=== PATIENT | male | born 1955 | race African-American/Black ===

== ENCOUNTER 2016-10-27 09:24 | Inpatient (IN) | payer MEDICAID ==
[~2016-10-27] VITALS: Ht 165.1 cm; Wt 66.2 kg
[~2016-10-27 09:24] MED LIST: BENZ1TAB7 PO; CLON1TAB PO; DIVA-18 PO; ESCI10TA PO; HALO5TAB PO; MAG-55 PO; METO25TA6 PO; PRAV40TA PO; QUET200T PO; QUET400T PO; SULI200T4 PO; SYN150 PO; TRAZ-132 PO; ZIPR60CA4 PO
[2016-10-27] MEDS ORDERED: SODIUM CHLORIDE 0.9% 1,000 ML IV ONE (09:38)
[2016-10-27 10:14] LABS: BASOPHILS % 0.5 % (0.0-2.0); HEMATOCRIT. 35.8 % (42.0-52.0); HEMOGLOBIN. 11.7 g/dL (14.0-18.0); LYMPHOCYTES % 12.6 % (20.0-50.0); MEAN CORPUSCULAR HEMOGLOBIN 28.1 pg (28.0-32.0); MEAN CORPUSCULAR VOLUME 85.8 fL (80.0-94.0); MEAN PLATELET VOLUME 9.7 fl (7.4-10.4); MONOCYTES % 6.7 % (2.0-8.0); NEUTROPHILS % 79.2 % (40.0-76.0); PLATELET 136 x1000/uL (130-400); RED BLOOD CELL COUNT 4.18 mill/uL (4.7-6.1); RED CELL DISTRIBUTION WIDTH 15.7 % (11.6-14.6)
[2016-10-27 10:17] LABS: INR 1.1; PARTIAL THROMBOPLASTIN TIME 22.5 sec (24.0-34.0); PROTHROMBIN TIME 11.2 sec
[2016-10-27 10:25] LABS: CARBON DIOXIDE 26 mEq/L (21-32); CHLORIDE 112 mEq/L (98-107); TROPONIN I < 0.02 ng/mL (0.00-0.04)
[2016-10-27] MEDS ORDERED: SODIUM CHLORIDE 0.45% 1,000 ML IV SCH (11:50)
[2016-10-27] MEDS ORDERED: IPRATROPIUM/ALBUTEROL 0.5-3(2.5)MG/3ML NEB INH PRN (12:00)
[2016-10-27] MEDS ORDERED: ONDANSETRON HCL 4MG/2ML VIAL IV PRN (12:00)
[2016-10-27] MEDS ORDERED: ACETAMINOPHEN 325MG TABLET PO PRN (12:00)
[2016-10-27] MEDS ORDERED: MAGNESIUM/ALUMINUM HYDROXIDE/SIMETHICONE 30ML UDC PO PRN (12:00)
[2016-10-27] MEDS ORDERED: DOCUSATE SODIUM 100MG CAPSULE PO PRN (12:00)
[2016-10-27] MEDS ORDERED: CLONIDINE 0.1MG TABLET PO PRN (12:00)
[2016-10-27] MEDS ORDERED: METOPROLOL TARTRATE 25MG TABLET PO NR (14:00)
[2016-10-27 14:30] VITALS: BP 132/84
[2016-10-27] MEDS ORDERED: AMLODIPINE 5MG TABLET PO SCH ×2 (15:00→21:00)
[2016-10-27 16:00] VITALS: BP 146/76
[2016-10-27] MEDS: ENOXAPARIN 40MG/0.4ML SYR SUBCUT SCH (16:53)
[2016-10-27] MEDS: LOSARTAN POTASSIUM 25 MG TABLET PO SCH (16:54)
[2016-10-27] MEDS: AMLODIPINE 10MG TABLET PO SCH (16:54)
[2016-10-27 17:39] LABS: CARBON DIOXIDE 30 mEq/L (21-32); CHLORIDE 113 mEq/L (98-107); CREATINE KINASE 362 IU/L (39-308); CREATINE KINASE MB FRACTION 1.9 ng/mL (0.5-3.6); TROPONIN I < 0.02 ng/mL (0.00-0.04)
[2016-10-27] MEDS ORDERED: DEXTROSE 50% WATER 50ML SYRINGE IV PRN (17:45)
[2016-10-27] MEDS ORDERED: NAPR-681 PO (18:15)
[2016-10-27] MEDS ORDERED: ACET160S PO (18:15)
[2016-10-27] MEDS ORDERED: ACETAMINOPHEN 160 MG/5 ML UD CUP PO SCH (18:30)
[2016-10-27] MEDS ORDERED: NAPROXEN 500MG TABLET PO PRN (18:30)
[2016-10-27] MEDS: DEXTROSE 5% WATER 1,000 ML IV SCH (18:47)
[2016-10-27 19:50] LABS: CLARITY URINE CLEAR (CLEAR); COLOR URINE YELLOW (YELLOW); GLUCOSE URINE NEGATIVE (NEGATIVE); KETONES URINE NEGATIVE (NEGATIVE); LEUKOCYTE ESTERASE URINE TRACE (NEGATIVE); NITRITE URINE NEGATIVE (NEGATIVE); OCCULT BLOOD URINE NEGATIVE (NEGATIVE); PH URINE 7.5 (4.5-8.0); PROTEIN URINE NEGATIVE (NEGATIVE); SPECIFIC GRAVITY URINE 1.012 (1.005-1.030)
[2016-10-27 20:00] VITALS: BP 97/63
[2016-10-27 20:22] LABS: *AMPHETAMINES SCREEN URINE NEGATIVE (NEGATIVE); *BARBITURATES SCREEN URINE NEGATIVE (NEGATIVE); *BENZODIAZEPINES SCREEN URINE NEGATIVE (NEGATIVE); *COCAINE SCREEN URINE NEGATIVE (NEGATIVE); CANNABINOID URINE SCREEN NEGATIVE (NEGATIVE); METHADONE URINE SCREEN NEGATIVE (NEGATIVE); OPIATES URINE SCREEN NEGATIVE (NEGATIVE); PHENCYCLIDINE URINE SCREEN NEGATIVE (NEGATIVE)
[2016-10-27] MEDS: TRAZODONE HCL 100MG TABLET PO SCH (20:33)
[2016-10-27] MEDS: BLOOD SUGAR DIAGNOSTIC STRIP TEST SCH (20:33)
[2016-10-27] MEDS: ATORVASTATIN CALCIUM 10MG TABLET PO SCH (20:33)
[2016-10-27] MEDS: QUETIAPINE FUMARATE 100MG TABLET PO SCH (20:33)
[2016-10-27] MEDS: INSULIN LISPRO 100 UNITS/ML SUBCUT SCH (20:42)
[2016-10-27 23:37] VITALS: BP 97/61
[2016-10-28] VITALS (8 sets, daily range): BP systolic 85–147; BP diastolic 59–85
[2016-10-28 00:04] LABS: CREATINE KINASE 328 IU/L (39-308); CREATINE KINASE MB FRACTION 1.7 ng/mL (0.5-3.6); TROPONIN I < 0.02 ng/mL (0.00-0.04)
[2016-10-28 05:50] LABS: BASOPHILS % 0.7 % (0.0-2.0); EOSINOPHILS % 3.9 % (0.0-5.0); HEMATOCRIT. 31.3 % (42.0-52.0); HEMOGLOBIN. 10.2 g/dL (14.0-18.0); LYMPHOCYTES % 29.8 % (20.0-50.0); MEAN CORPUSCULAR HEMOGLOBIN 28.1 pg (28.0-32.0); MEAN CORPUSCULAR VOLUME 86.1 fL (80.0-94.0); MEAN PLATELET VOLUME 9.8 fl (7.4-10.4); MONOCYTES % 8.5 % (2.0-8.0); NEUTROPHILS % 57.1 % (40.0-76.0); PLATELET 116 x1000/uL (130-400); RED BLOOD CELL COUNT 3.64 mill/uL (4.7-6.1); RED CELL DISTRIBUTION WIDTH 15.3 % (11.6-14.6)
[2016-10-28] MEDS: BLOOD SUGAR DIAGNOSTIC STRIP TEST SCH ×4 (07:01→20:42)
[2016-10-28] MEDS: INSULIN LISPRO 100 UNITS/ML SUBCUT SCH ×4 (07:05→20:42)
[2016-10-28] MEDS ORDERED: METOPROLOL TARTRATE 25MG TABLET PO SCH (09:00)
[2016-10-28] MEDS: AMLODIPINE 10MG TABLET PO SCH (09:00)
[2016-10-28] MEDS ORDERED: SODIUM CHLORIDE 0.45% 250 ML IV NR (09:00)
[2016-10-28] MEDS: LOSARTAN POTASSIUM 25 MG TABLET PO SCH (09:00)
[2016-10-28] MEDS: CITALOPRAM HYDROBROMIDE 20MG TABLET PO SCH (10:25)
[2016-10-28] MEDS: LEVOTHYROXINE SODIUM 150MCG TABLET PO SCH (10:25)
[2016-10-28] MEDS: CLONAZEPAM 1MG TABLET PO SCH ×2 (10:25→16:54)
[2016-10-28] MEDS: QUETIAPINE FUMARATE 100MG TABLET PO SCH ×3 (10:25→21:00)
[2016-10-28] MEDS: LORAZEPAM 0.5MG TABLET PO PRN (10:26)
[2016-10-28] MEDS: BENZTROPINE MESYLATE 1MG TABLET PO SCH ×2 (10:26→16:53)
[2016-10-28] MEDS: DIVALPROEX SODIUM 500MG DR TABLET PO SCH (10:28)
[2016-10-28] MEDS: DEXTROSE 5% WATER 1,000 ML IV SCH (11:35)
[2016-10-28] MEDS: ENOXAPARIN 40MG/0.4ML SYR SUBCUT SCH (16:54)
[2016-10-28] MEDS: TRAZODONE HCL 100MG TABLET PO SCH (21:00)
[2016-10-29] VITALS (8 sets, daily range): BP systolic 90–133; BP diastolic 56–91
[2016-10-29] MEDS: ATORVASTATIN CALCIUM 10MG TABLET PO SCH ×2 (00:05→21:35)
[2016-10-29] MEDS: DEXTROSE 5% WATER 1,000 ML IV SCH ×2 (04:48→17:40)
[2016-10-29] MEDS: INSULIN LISPRO 100 UNITS/ML SUBCUT SCH ×4 (06:24→21:00)
[2016-10-29] MEDS: BLOOD SUGAR DIAGNOSTIC STRIP TEST SCH ×4 (06:24→21:36)
[2016-10-29] MEDS: LEVOTHYROXINE SODIUM 150MCG TABLET PO SCH (06:28)
[2016-10-29] MEDS: CITALOPRAM HYDROBROMIDE 20MG TABLET PO SCH (09:09)
[2016-10-29] MEDS: BENZTROPINE MESYLATE 1MG TABLET PO SCH ×2 (09:09→17:38)
[2016-10-29] MEDS: CLONAZEPAM 1MG TABLET PO SCH ×2 (09:09→17:37)
[2016-10-29] MEDS: DIVALPROEX SODIUM 500MG DR TABLET PO SCH (09:10)
[2016-10-29] MEDS: QUETIAPINE FUMARATE 100MG TABLET PO SCH ×3 (09:10→21:36)
[2016-10-29] MEDS: AMLODIPINE 10MG TABLET PO SCH (09:10)
[2016-10-29] MEDS: LOSARTAN POTASSIUM 25 MG TABLET PO SCH (09:10)
[2016-10-29] MEDS: LORAZEPAM 0.5MG TABLET PO PRN (14:14)
[2016-10-29] MEDS: ENOXAPARIN 40MG/0.4ML SYR SUBCUT SCH (17:38)
[2016-10-29] MEDS: TRAZODONE HCL 100MG TABLET PO SCH (21:35)
[2016-10-30 04:00] VITALS: BP 111/92
[2016-10-30] MEDS: INSULIN LISPRO 100 UNITS/ML SUBCUT SCH ×3 (06:43→16:42)
[2016-10-30] MEDS: LEVOTHYROXINE SODIUM 150MCG TABLET PO SCH (06:43)
[2016-10-30] MEDS: BLOOD SUGAR DIAGNOSTIC STRIP TEST SCH ×3 (06:43→16:42)
[2016-10-30 07:46] LABS: BASOPHILS % 0.6 % (0.0-2.0); HEMATOCRIT. 37.6 % (42.0-52.0); HEMOGLOBIN. 12.1 g/dL (14.0-18.0); LYMPHOCYTES % 23.1 % (20.0-50.0); MEAN CORPUSCULAR HEMOGLOBIN 27.9 pg (28.0-32.0); MEAN CORPUSCULAR VOLUME 86.4 fL (80.0-94.0); MEAN PLATELET VOLUME 9.9 fl (7.4-10.4); MONOCYTES % 7.4 % (2.0-8.0); NEUTROPHILS % 65.9 % (40.0-76.0); PLATELET 113 x1000/uL (130-400); RED BLOOD CELL COUNT 4.35 mill/uL (4.7-6.1); RED CELL DISTRIBUTION WIDTH 15.9 % (11.6-14.6)
[2016-10-30 07:58] LABS: CARBON DIOXIDE 26 mEq/L (21-32); CHLORIDE 110 mEq/L (98-107)
[2016-10-30 08:00] VITALS: BP 107/70
[2016-10-30] MEDS: LOSARTAN POTASSIUM 25 MG TABLET PO SCH (09:00)
[2016-10-30] MEDS: BENZTROPINE MESYLATE 1MG TABLET PO SCH ×2 (09:07→16:42)
[2016-10-30] MEDS: CITALOPRAM HYDROBROMIDE 20MG TABLET PO SCH (09:07)
[2016-10-30] MEDS: CLONAZEPAM 1MG TABLET PO SCH ×2 (09:07→16:42)
[2016-10-30] MEDS: DIVALPROEX SODIUM 500MG DR TABLET PO SCH (09:07)
[2016-10-30] MEDS: QUETIAPINE FUMARATE 100MG TABLET PO SCH ×2 (09:07→16:42)
[2016-10-30] MEDS: AMLODIPINE 10MG TABLET PO SCH (09:08)
[2016-10-30 12:00] VITALS: BP 110/69
[2016-10-30 16:00] VITALS: BP 98/72
[2016-10-30] MEDS: ENOXAPARIN 40MG/0.4ML SYR SUBCUT SCH (16:42)
[2016-10-30 20:00] VITALS: BP 100/75
== END 2016-10-30 21:10 | disposition home or self-care (01) | DRG 48 ==
LOC: ER 09:28 → 8WST 11:00 → EDBEDREQ 11:01 → ENRESERV 13:06 → 8WST 15:44
PROVIDERS: ADMIT Internal Medicine; ATTEND Internal Medicine
DX: G90.8 Other disorders of autonomic nervous system (principal); G93.40 Encephalopathy, unspecified; N17.9 Acute kidney failure, unspecified; E87.0 Hyperosmolality and hypernatremia; I95.9 Hypotension, unspecified; I10 Essential (primary) hypertension; E11.9 Type 2 diabetes mellitus without complications; D64.9 Anemia, unspecified; G40.909 Epilepsy, unspecified, not intractable, without status epilepticus; R00.1 Bradycardia, unspecified; E03.9 Hypothyroidism, unspecified; F20.9 Schizophrenia, unspecified; E78.5 Hyperlipidemia, unspecified; Z86.73 Personal history of transient ischemic attack (TIA), and cerebral infarction without residual deficits; Z78.1 Physical restraint status; Z79.899 Other long term (current) drug therapy
CPT/HCPCS: 36415; 70450; 70551; 71010; 80048; 80053; 80061; 80305; 81001; 82550; 82553; 82962; 83036; 83880; 84443; 84484; 85025; 85610; 85730; 93005; 93306; 93880; 93970; 99285; A6261; C1893; J1650; J1815; J7030; J7070; A4315

== ENCOUNTER 2017-01-02 14:13 | Emergency (ER) | payer MEDICAID ==
[~2017-01-02] VITALS: Ht 172.7 cm; Wt 70.0 kg
[~2017-01-02 14:13] MED LIST changes: +ACET160S PO; +NAPR-681 PO
[2017-01-02] MEDS ORDERED: TETANUS, DIPHTHERIA, PERTUSSIS VAC/PF 0.5ML (>7YR OLD) IM ONE (15:15)
[2017-01-02] MEDS ORDERED: KETOROLAC 30MG/ML VIAL IM ONE (15:15)
[2017-01-02] MEDS ORDERED: LIDOCAINE HCL 1% 20ML VIAL (Pyxis) INJ MC ONE (15:15)
[2017-01-02] MEDS ORDERED: BACITRACIN ZINC OINT UDPKT TOP ONE (15:15)
[2017-01-02] MEDS ORDERED: LORAZEPAM 2MG/ML CPJ IM ONE ×2 (15:45→17:45)
[2017-01-02 17:45] VITALS: BP 126/86
[2017-01-02] MEDS ORDERED: KETOROLAC 60MG/2ML VIAL IM ONE (17:45)
== END 2017-01-02 20:23 | disposition home or self-care (01) ==
LOC: ER 14:47
DX: S01.81XA Laceration without foreign body of other part of head, initial encounter (principal); E11.9 Type 2 diabetes mellitus without complications; I10 Essential (primary) hypertension; Y08.89XA Assault by other specified means, initial encounter; Y93.89 Activity, other specified; Y92.89 Other specified places as the place of occurrence of the external cause; Y99.8 Other external cause status
CPT/HCPCS: 12011; 90471; 90715; 96372; 99284; A4217; J1885; J2060; J3490; Z7610

== ENCOUNTER 2019-04-04 20:28 | Emergency (ER) | payer MEDICAID, OTHER ==
[~2019-04-04] VITALS: Ht 177.8 cm; Wt 73.0 kg
[~2019-04-04 20:28] MED LIST changes: -TRAZ-132 PO; +TRAZ-213 PO; +ZIPR60CA2 PO; -ZIPR60CA4 PO
[2019-04-04] MEDS ORDERED: SODIUM CHLORIDE 0.9% 1,000 ML IV ONE (21:06)
[2019-04-04] MEDS ORDERED: LORAZEPAM 2MG/ML CPJ IV ONE (21:15)
[2019-04-04] MEDS ORDERED: TETANUS, DIPHTHERIA, PERTUSSIS VAC/PF 0.5ML (>7YR OLD) IM ONE (21:15)
[2019-04-04] MEDS ORDERED: LEVETIRACETAM 500MG PREMIX 100 ML IV ONE (21:15)
[2019-04-04] MEDS ORDERED: PERMETHRIN 5% CREAM 60GM TOP ONE (21:15)
[2019-04-04] MEDS ORDERED: BACITRACIN ZINC OINT UDPKT TOP ONE (21:15)
[2019-04-04 23:33] LABS: BASOPHILS % 0.3 % (0.0-2.0); EOSINOPHILS % 2.4 % (0.0-5.0); HEMATOCRIT. 33.9 % (42.0-52.0); HEMOGLOBIN. 11.1 g/dL (14.0-18.0); LYMPHOCYTES % 8.3 % (20.0-50.0); MEAN CORPUSCULAR HEMOGLOBIN 28.3 pg (28.0-32.0); MEAN CORPUSCULAR VOLUME 86.7 fL (80.0-94.0); MEAN PLATELET VOLUME 9.2 fl (7.4-10.4); MONOCYTES % 8.4 % (2.0-8.0); NEUTROPHILS % 80.6 % (40.0-76.0); PLATELET 186 x1000/uL (130-400); RED BLOOD CELL COUNT 3.91 mill/uL (4.7-6.1); RED CELL DISTRIBUTION WIDTH 15.3 % (11.6-14.6)
[2019-04-04 23:41] LABS: CHLORIDE 110 mEq/L (98-107)
[2019-04-04 23:45] LABS: PROTHROMBIN TIME 10.6 sec (9.6-11.0)
[2019-04-04 23:49] LABS: CREATINE KINASE 137 IU/L (39-308)
[2019-04-05 00:07] LABS: CARBAMAZEPINE < 0.5 ug/mL (4-12); PHENOBARBITAL < 2.1 ug/mL (15.0-40.0); VALPROIC ACID < 3.0 ug/mL (50-100)
[2019-04-05 09:39] VITALS: BP 122/72
== END 2019-04-05 09:47 | disposition home or self-care (01) ==
LOC: ER 20:28
DX: S01.111A Laceration without foreign body of right eyelid and periocular area, initial encounter (principal); S00.81XA Abrasion of other part of head, initial encounter; R56.9 Unspecified convulsions; F20.9 Schizophrenia, unspecified; Z79.899 Other long term (current) drug therapy; W18.39XA Other fall on same level, initial encounter; Y93.89 Activity, other specified; Y92.89 Other specified places as the place of occurrence of the external cause; Y99.8 Other external cause status
CPT/HCPCS: 12011; 36415; 70450; 71045; 80053; 80156; 80165; 80184; 80185; 82550; 83605; 84443; 84484; 85025; 85610; 85730; 87040; 87086; 90471; 90715; 93005; 96365; 96366; 96375; 99284; J1953; J2060; J7030; Z7610; A4315

== ENCOUNTER 2020-10-08 07:05 | Inpatient (IN) | payer MEDICARE, MEDICAID ==
[2020-10-08] VITALS (36 sets, daily range): BP systolic 61–140; BP diastolic 20–89
[~2020-10-08] VITALS: Ht 180.3 cm; Wt 99.8 kg
[~2020-10-08 07:05] MED LIST changes: -TRAZ-213 PO; +TRAZ-252 PO; -ZIPR60CA2 PO
[2020-10-08] MEDS ORDERED: IOHEXOL-350 100 ML BOTTLE ONE ×2 (07:26→11:48)
[2020-10-08] MEDS ORDERED: DEXTROSE 50% WATER 50ML SYRINGE IV ONE ×2 (07:45→08:45)
[2020-10-08] MEDS: ASPIRIN 325MG EC TABLET PO ONE (08:00)
[2020-10-08 08:11] LABS: HEMATOCRIT. 25.1 % (42.0-52.0); MEAN CORPUSCULAR HEMOGLOBIN 26.8 pg (28.0-32.0); RED BLOOD CELL COUNT 2.99 mill/uL (4.7-6.1); RED CELL DISTRIBUTION WIDTH 18.1 % (11.6-14.6)
[2020-10-08 08:16] LABS: CHLORIDE 124 mEq/L (98-107)
[2020-10-08 08:19] LABS: PROTHROMBIN TIME 11.1 sec (9.6-11.0)
[2020-10-08 08:20] LABS: ETHANOL BLOOD < 10 mg/dL
[2020-10-08 08:23] LABS: LDL CHOLESTEROL 33 mg/dL (5-100)
[2020-10-08] MEDS ORDERED: SODIUM BICARBONATE 8.4% 1 MEQ/ML 50ML SYR IV ONE (08:45)
[2020-10-08] MEDS ORDERED: INSULIN REGULAR (HUMULIN R) 300UNITS/3ML VIAL IV ONE (08:45)
[2020-10-08] MEDS ORDERED: ALBUTEROL (0.083%) 2.5MG/3ML NEB HHN ONE (08:45)
[2020-10-08] MEDS ORDERED: CALCIUM CHLORIDE 1GM/10ML SYR IV ONE (08:45)
[2020-10-08 09:04] LABS: PLATELET ESTIMATE DECREASED
[2020-10-08 09:05] LABS: MEAN PLATELET VOLUME 11.1 fl (7.4-10.4)
[2020-10-08 09:09] LABS: PLATELET 37 x1000/uL (130-400)
[2020-10-08] MEDS ORDERED: DIPHENHYDRAMINE 50MG/ML VIAL IV PRN (12:15)
[2020-10-08] MEDS ORDERED: MORPHINE SULFATE 2 MG/ML CPJ (NOT FOR IM USE) IV PRN (12:15)
[2020-10-08] MEDS ORDERED: ACETAMINOPHEN 650MG SUPP PR PRN (12:15)
[2020-10-08] MEDS ORDERED: ACETAMINOPHEN 325MG TABLET PO PRN (12:15)
[2020-10-08] MEDS ORDERED: CLONIDINE 0.1MG TABLET PO PRN (12:15)
[2020-10-08] MEDS ORDERED: HYDROCODONE/ACETAMINOPHEN 5/325MG TABLET PO PRN (12:15)
[2020-10-08] MEDS ORDERED: GUAIFENESIN 200MG/10ML SUGAR FREE UDC PO PRN (12:15)
[2020-10-08] MEDS ORDERED: MAGNESIUM/ALUMINUM HYDROXIDE/SIMETHICONE 30ML UDC PO PRN (12:15)
[2020-10-08] MEDS ORDERED: DOCUSATE SODIUM 100MG CAPSULE PO PRN (12:15)
[2020-10-08 13:16] LABS: CLARITY URINE CLEAR (CLEAR); COLOR URINE YELLOW (YELLOW); KETONES URINE NEGATIVE (NEGATIVE); LEUKOCYTE ESTERASE URINE NEGATIVE (NEGATIVE); NITRITE URINE NEGATIVE (NEGATIVE); OCCULT BLOOD URINE TRACE (NEGATIVE); PROTEIN URINE 1+ (NEGATIVE); SPECIFIC GRAVITY URINE 1.022 (1.005-1.030); UROBILINOGEN URINE 0.2 E.U./dL (0.2-1.0)
[2020-10-08] MEDS ORDERED: HEPARIN 1000 UNITS/ML 10ML ONE (13:27)
[2020-10-08 13:40] LABS: *AMPHETAMINES SCREEN URINE NEGATIVE (NEGATIVE); *BARBITURATES SCREEN URINE NEGATIVE (NEGATIVE)
[2020-10-08 13:41] LABS: *BENZODIAZEPINES SCREEN URINE NEGATIVE (NEGATIVE); *COCAINE SCREEN URINE NEGATIVE (NEGATIVE); CANNABINOID URINE SCREEN NEGATIVE (NEGATIVE); METHADONE URINE SCREEN NEGATIVE (NEGATIVE); OPIATES URINE SCREEN NEGATIVE (NEGATIVE); PHENCYCLIDINE URINE SCREEN NEGATIVE (NEGATIVE)
[2020-10-08 14:11] LABS: PHOSPHORUS 4.1 mg/dL (2.5-4.9)
[2020-10-08 14:52] LABS: BG BASE EXCESS -7.6 mmol/L (-2.0-2.0); BG CARBOXYHEMOGLOBIN 0.8 % (0.5-1.5); BG FRACTION INSPIRED OXYGEN 21; BG HCO3 ACT 19.8 mmol/L (22.0-26.0); BG METHEMOGLOBIN 0.3 % (0.0-1.5); BG OXYGEN SATURATION 91.9 % (92.0-98.5); BG OXYHEMOGLOBIN 90.9 % (94.0-97.0); BG PCO2 51.1 mmHg (35.0-45.0); BG PH 7.206 (7.350-7.450); BG PO2 81.2 mmHg (75.0-100.0); BG SAMPLE SITE RIGHT RADIAL; BG TOTAL HEMOGLOBIN 6.7 g/dL (12.0-18.0); BG VENT MODE ROOM AIR
[2020-10-08] MEDS ORDERED: SODIUM CHLORIDE 0.9% 1,000 ML IV SCH (15:30)
[2020-10-08] MEDS ORDERED: NOREPINEPHRINE 8 MG in DEXT 5% WATER 242 ML IV PRN (16:30)
[2020-10-08] MEDS ORDERED: SODIUM CHLORIDE 0.9% 250 ML IV NR (16:45)
[2020-10-08] MEDS ORDERED: DOPAMINE 400MG/250ML PREMIX 250 ML IV PRN (16:49)
[2020-10-08] MEDS ORDERED: SODIUM POLYSTYRENE SULFONATE 15 G/60 ML BOT PO NR (17:30)
[2020-10-08 18:11] LABS: BG BASE EXCESS -4.6 mmol/L (-2.0-2.0); BG CARBOXYHEMOGLOBIN 0.3 % (0.5-1.5); BG DEOXYHEMOGLOBIN 4.2 % (0.0-5.0); BG FRACTION INSPIRED OXYGEN 36; BG HCO3 ACT 21.6 mmol/L (22.0-26.0); BG METHEMOGLOBIN 0.3 % (0.0-1.5); BG OXYGEN SATURATION 95.8 % (92.0-98.5); BG OXYHEMOGLOBIN 95.2 % (94.0-97.0); BG PCO2 45.4 mmHg (35.0-45.0); BG PH 7.295 (7.350-7.450); BG PO2 112.4 mmHg (75.0-100.0); BG SAMPLE SITE RIGHT RADIAL; BG TOTAL HEMOGLOBIN 7.2 g/dL (12.0-18.0); BG VENT MODE NASAL CANNULA
[2020-10-08] MEDS ORDERED: SODIUM BICARBONATE 8.4% 1 MEQ/ML 50ML SYR IV NR (18:39)
[2020-10-08] MEDS ORDERED: DOPAMINE 800MG/500ML PREMIX 500 ML IV PRN (18:45)
[2020-10-08] MEDS ORDERED: DOPAMINE 800MG PREMIX (DOUBLE) 800 ML IV PRN (18:45)
[2020-10-08] MEDS: DEXTROSE 5% WATER 1,000 ML IV SCH (20:07)
[2020-10-08] MEDS: NOREPINEPHRINE 32 MG in DEXT 5% WATER 218 ML IV PRN (20:25)
[2020-10-08] MEDS: BENZTROPINE MESYLATE 1MG TABLET PO SCH (21:39)
[2020-10-09] VITALS (83 sets, daily range): BP systolic 64–142; BP diastolic 35–85
[2020-10-09] MEDS: IPRATROPIUM/ALBUTEROL 0.5-3(2.5)MG/3ML NEB HHN PRN ×2 (04:19→09:31)
[2020-10-09] MEDS: NOREPINEPHRINE 32 MG in DEXT 5% WATER 218 ML IV PRN ×2 (04:32→10:31)
[2020-10-09 05:42] LABS: CHLORIDE 113 mEq/L (98-107); HEMATOCRIT. 25.8 % (42.0-52.0); MEAN CORPUSCULAR HEMOGLOBIN 25.9 pg (28.0-32.0); MEAN CORPUSCULAR VOLUME 83.5 fL (80.0-94.0); MEAN PLATELET VOLUME 11.2 fl (7.4-10.4); PLATELET 54 x1000/uL (130-400); RED BLOOD CELL COUNT 3.08 mill/uL (4.7-6.1); RED CELL DISTRIBUTION WIDTH 17.8 % (11.6-14.6)
[2020-10-09 05:50] LABS: LDL CHOLESTEROL 29 mg/dL (5-100)
[2020-10-09 05:52] LABS: HDL CHOLESTEROL 92 mg/dL (40-59); T4 FREE 1.19 ng/dL (0.76-1.46)
[2020-10-09] MEDS: LEVOTHYROXINE SODIUM 150MCG TABLET PO SCH (06:41)
[2020-10-09] MEDS: DEXTROSE 5% WATER 1,000 ML IV SCH (08:11)
[2020-10-09] MEDS: BENZTROPINE MESYLATE 1MG TABLET PO SCH ×3 (08:11→17:32)
[2020-10-09] MEDS: DIVALPROEX SODIUM 500MG ER TABLET PO SCH ×2 (08:12→09:00)
[2020-10-09] MEDS ORDERED: DIVALPROEX SODIUM 500MG DR TABLET PO SCH (09:00)
[2020-10-09 09:04] LABS: BG CARBOXYHEMOGLOBIN 0.3 % (0.5-1.5); BG DEOXYHEMOGLOBIN 3.7 % (0.0-5.0); BG FRACTION INSPIRED OXYGEN 32; BG HCO3 ACT 22.8 mmol/L (22.0-26.0); BG METHEMOGLOBIN 0.2 % (0.0-1.5); BG OXYGEN SATURATION 96.3 % (92.0-98.5); BG OXYHEMOGLOBIN 95.8 % (94.0-97.0); BG PCO2 38.2 mmHg (35.0-45.0); BG PH 7.393 (7.350-7.450); BG PO2 113.5 mmHg (75.0-100.0); BG SAMPLE SITE LEFT RADIAL; BG VENT MODE NASAL CANNULA
[2020-10-09 09:30] LABS: BASOPHILS % 0.1 % (0.0-2.0); EOSINOPHILS % 0.1 % (0.0-5.0); HEMATOCRIT. 24.4 % (42.0-52.0); HEMOGLOBIN. 7.7 g/dL (14.0-18.0); LYMPHOCYTES % 7.4 % (20.0-50.0); MEAN CORPUSCULAR HEMOGLOBIN 26.8 pg (28.0-32.0); MEAN CORPUSCULAR VOLUME 84.7 fL (80.0-94.0); MONOCYTES % 7.5 % (2.0-8.0); NEUTROPHILS % 84.9 % (40.0-76.0); RED BLOOD CELL COUNT 2.88 mill/uL (4.7-6.1); RED CELL DISTRIBUTION WIDTH 17.8 % (11.6-14.6)
[2020-10-09 10:31] LABS: PLATELET 51 x1000/uL (130-400)
[2020-10-09] MEDS ORDERED: FUROSEMIDE 40MG/4ML VIAL IVP NR (11:36)
[2020-10-09] MEDS: IPRATROPIUM/ALBUTEROL 0.5-3(2.5)MG/3ML NEB HHN SCH ×3 (11:38→20:10)
[2020-10-09] MEDS: CEFEPIME 1,000 MG in DEXTROSE 5% WATER 50 ML IV SCH ×2 (11:49→23:32)
[2020-10-09 12:05] LABS: NUCLEATED RED BLOOD CELLS 2 /100 WBC; PLATELET ESTIMATE MARKEDLY DECREASED
[2020-10-09] MEDS: PHENYLEPHRINE 100 MG in DEXT 5% WATER 240 ML IV PRN ×2 (13:13→19:27)
[2020-10-09] MEDS: METRONIDAZOLE 500 MG PREMIX 100 ML IV SCH ×2 (15:15→19:27)
[2020-10-09] MEDS: ACETYLCYSTEINE 100MG/ML 10% VIAL 4ML INH SCH (15:35)
[2020-10-09] MEDS ORDERED: MIDODRINE HCL 5MG TABLET NG NR (17:30)
[2020-10-09] MEDS: VALPROATE SODIUM 250MG/5ML UDC NG SCH (17:31)
[2020-10-09] MEDS: ONDANSETRON HCL 4MG/2ML INJ IV PRN (21:03)
[2020-10-09] MEDS: MIDODRINE HCL 5MG TABLET NG SCH (21:04)
[2020-10-09] MEDS: VASOPRESSIN 20 UNIT in SODIUM CHLORIDE 0.9% 99 ML IV PRN (21:34)
[2020-10-09] MEDS ORDERED: MIDODRINE HCL 5MG TABLET PO SCH (22:00)
[2020-10-09 22:24] LABS: HEPATITIS B SURFACE AB < 3.1 mIU/mL
[2020-10-09 22:35] LABS: HEPATITIS B SURFACE ANTIGEN NEGATIVE
[2020-10-09 23:03] LABS: HEPATITIS A AB IGM NEGATIVE (NEGATIVE)
[2020-10-10] VITALS (99 sets, daily range): BP systolic 62–164; BP diastolic 35–105
[2020-10-10] MEDS: ACETYLCYSTEINE 100MG/ML 10% VIAL 4ML INH SCH ×3 (00:02→16:48)
[2020-10-10] MEDS: IPRATROPIUM/ALBUTEROL 0.5-3(2.5)MG/3ML NEB HHN SCH ×6 (00:02→20:20)
[2020-10-10] MEDS: PHENYLEPHRINE 100 MG in DEXT 5% WATER 240 ML IV PRN ×4 (01:10→20:53)
[2020-10-10] MEDS: METRONIDAZOLE 500 MG PREMIX 100 ML IV SCH ×3 (04:02→20:53)
[2020-10-10] MEDS: VASOPRESSIN 20 UNIT in SODIUM CHLORIDE 0.9% 99 ML IV PRN ×2 (04:07→13:21)
[2020-10-10 05:24] LABS: BASOPHILS % 0.2 % (0.0-2.0); EOSINOPHILS % 0.1 % (0.0-5.0); LYMPHOCYTES % 11.9 % (20.0-50.0); MEAN CORPUSCULAR HEMOGLOBIN 26.6 pg (28.0-32.0); MEAN CORPUSCULAR VOLUME 81.9 fL (80.0-94.0); MEAN PLATELET VOLUME 10.7 fl (7.4-10.4); MONOCYTES % 5.5 % (2.0-8.0); NEUTROPHILS % 82.3 % (40.0-76.0); RED BLOOD CELL COUNT 2.31 mill/uL (4.7-6.1); RED CELL DISTRIBUTION WIDTH 17.4 % (11.6-14.6)
[2020-10-10 05:55] LABS: HEMATOCRIT. 18.9 % (42.0-52.0); HEMOGLOBIN. 6.1 g/dL (14.0-18.0); PLATELET 46 x1000/uL (130-400)
[2020-10-10] MEDS: LEVOTHYROXINE SODIUM 150MCG TABLET PO SCH (06:27)
[2020-10-10] MEDS: MIDODRINE HCL 5MG TABLET NG SCH ×3 (06:28→21:42)
[2020-10-10] MEDS: DEXTROSE 5% WATER 1,000 ML IV SCH (09:20)
[2020-10-10] MEDS: BENZTROPINE MESYLATE 1MG TABLET PO SCH ×2 (09:20→17:09)
[2020-10-10] MEDS: VALPROATE SODIUM 250MG/5ML UDC NG SCH ×2 (09:20→17:09)
[2020-10-10] MEDS ORDERED: MAGNESIUM 2 G PREMIX 50 ML IV NR (11:30)
[2020-10-10] MEDS: CEFEPIME 1GM PREMIX 50 ML IV SCH ×2 (11:35→23:56)
[2020-10-11] VITALS (96 sets, daily range): BP systolic 79–153; BP diastolic 42–74
[2020-10-11] MEDS: ACETYLCYSTEINE 100MG/ML 10% VIAL 4ML INH SCH ×4 (00:27→23:57)
[2020-10-11] MEDS: IPRATROPIUM/ALBUTEROL 0.5-3(2.5)MG/3ML NEB HHN SCH ×6 (00:27→23:58)
[2020-10-11] MEDS: METRONIDAZOLE 500 MG PREMIX 100 ML IV SCH ×3 (03:13→20:58)
[2020-10-11] MEDS: MIDODRINE HCL 5MG TABLET NG SCH ×3 (05:38→21:38)
[2020-10-11 06:01] LABS: BASOPHILS % 0.4 % (0.0-2.0); EOSINOPHILS % 1.2 % (0.0-5.0); HEMATOCRIT. 23.9 % (42.0-52.0); LYMPHOCYTES % 9.3 % (20.0-50.0); MEAN CORPUSCULAR HEMOGLOBIN 28.1 pg (28.0-32.0); MEAN CORPUSCULAR VOLUME 83.7 fL (80.0-94.0); MEAN PLATELET VOLUME 10.4 fl (7.4-10.4); MONOCYTES % 4.2 % (2.0-8.0); NEUTROPHILS % 84.9 % (40.0-76.0); PLATELET 58 x1000/uL (130-400); RED BLOOD CELL COUNT 2.85 mill/uL (4.7-6.1); RED CELL DISTRIBUTION WIDTH 16.7 % (11.6-14.6)
[2020-10-11] MEDS: LEVOTHYROXINE SODIUM 150MCG TABLET PO SCH (06:10)
[2020-10-11] MEDS: PHENYLEPHRINE 100 MG in DEXT 5% WATER 240 ML IV PRN (06:11)
[2020-10-11 06:12] LABS: PHOSPHORUS 3.8 mg/dL (2.5-4.9)
[2020-10-11 06:28] LABS: FOLIC ACID (FOLATE) SERUM 6.4 ng/mL (>5.38)
[2020-10-11] MEDS: VALPROATE SODIUM 250MG/5ML UDC NG SCH ×2 (08:57→16:16)
[2020-10-11] MEDS: DEXTROSE 5% WATER 1,000 ML IV SCH (08:57)
[2020-10-11] MEDS: IRON SUCROSE COMPLEX 100 MG/5 ML ML IV SCH (08:57)
[2020-10-11] MEDS: BENZTROPINE MESYLATE 1MG TABLET PO SCH ×2 (08:58→16:16)
[2020-10-11] MEDS: CEFEPIME 1GM PREMIX 50 ML IV SCH ×2 (11:18→23:44)
[2020-10-12] VITALS (45 sets, daily range): BP systolic 90–126; BP diastolic 54–73
[2020-10-12] MEDS: IPRATROPIUM/ALBUTEROL 0.5-3(2.5)MG/3ML NEB HHN SCH ×6 (03:28→21:50)
[2020-10-12] MEDS: METRONIDAZOLE 500 MG PREMIX 100 ML IV SCH ×3 (03:42→19:46)
[2020-10-12 05:02] LABS: HEMATOCRIT. 24.4 % (42.0-52.0); MEAN CORPUSCULAR HEMOGLOBIN 28.2 pg (28.0-32.0); MEAN CORPUSCULAR VOLUME 85.4 fL (80.0-94.0); MEAN PLATELET VOLUME 10.3 fl (7.4-10.4); PLATELET 74 x1000/uL (130-400); RED BLOOD CELL COUNT 2.85 mill/uL (4.7-6.1); RED CELL DISTRIBUTION WIDTH 17.4 % (11.6-14.6)
[2020-10-12 05:15] LABS: PHOSPHORUS 3.3 mg/dL (2.5-4.9)
[2020-10-12] MEDS: MIDODRINE HCL 5MG TABLET NG SCH ×3 (05:57→21:13)
[2020-10-12] MEDS: LEVOTHYROXINE SODIUM 150MCG TABLET PO SCH (05:57)
[2020-10-12] MEDS: DEXTROSE 5% WATER 1,000 ML IV SCH ×2 (06:30→18:18)
[2020-10-12] MEDS: ACETYLCYSTEINE 100MG/ML 10% VIAL 4ML INH SCH ×2 (07:33→15:40)
[2020-10-12] MEDS: VALPROATE SODIUM 250MG/5ML UDC NG SCH ×2 (08:51→17:32)
[2020-10-12] MEDS: IRON SUCROSE COMPLEX 100 MG/5 ML ML IV SCH (08:51)
[2020-10-12] MEDS: BENZTROPINE MESYLATE 1MG TABLET PO SCH ×2 (08:51→17:32)
[2020-10-12] MEDS ORDERED: FUROSEMIDE 40MG/4ML VIAL IVP NR (11:09)
[2020-10-12] MEDS: CEFEPIME 1GM PREMIX 50 ML IV SCH ×2 (11:14→22:45)
[2020-10-12 13:26] LABS: PLATELET ESTIMATE DECREASED
[2020-10-13] VITALS (14 sets, daily range): BP systolic 92–123; BP diastolic 49–71
[2020-10-13] MEDS: IPRATROPIUM/ALBUTEROL 0.5-3(2.5)MG/3ML NEB HHN SCH ×6 (00:53→19:53)
[2020-10-13] MEDS: ACETYLCYSTEINE 100MG/ML 10% VIAL 4ML INH SCH ×3 (00:53→14:50)
[2020-10-13] MEDS: METRONIDAZOLE 500 MG PREMIX 100 ML IV SCH ×3 (03:49→20:06)
[2020-10-13] MEDS: MIDODRINE HCL 5MG TABLET NG SCH ×3 (06:05→21:40)
[2020-10-13] MEDS: LEVOTHYROXINE SODIUM 150MCG TABLET PO SCH (06:05)
[2020-10-13 06:22] LABS: HEMATOCRIT. 24.3 % (42.0-52.0); HEMOGLOBIN. 7.9 g/dL (14.0-18.0); MEAN CORPUSCULAR HEMOGLOBIN 28.2 pg (28.0-32.0); MEAN CORPUSCULAR VOLUME 86.6 fL (80.0-94.0); MEAN PLATELET VOLUME 10.4 fl (7.4-10.4); PLATELET 83 x1000/uL (130-400); RED BLOOD CELL COUNT 2.81 mill/uL (4.7-6.1)
[2020-10-13 06:45] LABS: PHOSPHORUS 2.9 mg/dL (2.5-4.9)
[2020-10-13] MEDS: BENZTROPINE MESYLATE 1MG TABLET PO SCH ×2 (08:59→17:49)
[2020-10-13] MEDS: VALPROATE SODIUM 250MG/5ML UDC NG SCH ×2 (08:59→17:49)
[2020-10-13] MEDS: IRON SUCROSE COMPLEX 100 MG/5 ML ML IV SCH (08:59)
[2020-10-13] MEDS: DEXTROSE 5% WATER 1,000 ML IV SCH (10:09)
[2020-10-13 10:36] LABS: NUCLEATED RED BLOOD CELLS 1 /100 WBC
[2020-10-13 10:37] LABS: PLATELET ESTIMATE DECREASED
[2020-10-13] MEDS: CEFEPIME 1GM PREMIX 50 ML IV SCH (12:35)
[2020-10-14] VITALS (11 sets, daily range): BP systolic 100–155; BP diastolic 57–89
[2020-10-14] MEDS: ACETYLCYSTEINE 100MG/ML 10% VIAL 4ML INH SCH ×3 (00:08→16:44)
[2020-10-14] MEDS: IPRATROPIUM/ALBUTEROL 0.5-3(2.5)MG/3ML NEB HHN SCH ×5 (00:08→16:44)
[2020-10-14] MEDS: CEFEPIME 1GM PREMIX 50 ML IV SCH ×2 (00:33→11:49)
[2020-10-14] MEDS: DILTIAZEM HCL 60MG TABLET PO SCH ×2 (03:30→06:37)
[2020-10-14] MEDS: METRONIDAZOLE 500 MG PREMIX 100 ML IV SCH ×2 (04:18→11:30)
[2020-10-14] MEDS: DEXTROSE 5% WATER 1,000 ML IV SCH (04:20)
[2020-10-14 06:12] LABS: HEMATOCRIT. 26.7 % (42.0-52.0); HEMOGLOBIN. 8.9 g/dL (14.0-18.0); MEAN CORPUSCULAR HEMOGLOBIN 28.9 pg (28.0-32.0); PLATELET 127 x1000/uL (130-400); RED BLOOD CELL COUNT 3.07 mill/uL (4.7-6.1); RED CELL DISTRIBUTION WIDTH 18.1 % (11.6-14.6)
[2020-10-14 06:13] LABS: CHLORIDE 113 mEq/L (98-107)
[2020-10-14 06:29] LABS: PHOSPHORUS 2.5 mg/dL (2.5-4.9)
[2020-10-14 06:32] LABS: CREATINE KINASE 737 IU/L (39-308)
[2020-10-14] MEDS: MIDODRINE HCL 5MG TABLET NG SCH ×3 (06:36→22:08)
[2020-10-14] MEDS: LEVOTHYROXINE SODIUM 150MCG TABLET PO SCH (06:37)
[2020-10-14 09:21] LABS: NUCLEATED RED BLOOD CELLS 1 /100 WBC
[2020-10-14 09:22] LABS: PLATELET ESTIMATE SLIGHTLY DECREASED
[2020-10-14] MEDS: VALPROATE SODIUM 250MG/5ML UDC NG SCH ×2 (10:13→17:19)
[2020-10-14] MEDS: BENZTROPINE MESYLATE 1MG TABLET PO SCH ×2 (10:13→17:19)
[2020-10-14] MEDS: ASPIRIN 325MG EC TABLET PO ONE (12:17)
[2020-10-14] MEDS: DILTIAZEM HCL 30MG TABLET PO SCH ×3 (13:07→23:53)
[2020-10-15] VITALS (12 sets, daily range): BP systolic 99–134; BP diastolic 53–87
[2020-10-15] MEDS ORDERED: CEFEPIME 1,000 MG in DEXTROSE 5% WATER 50 ML IV NR
[2020-10-15] MEDS: IPRATROPIUM/ALBUTEROL 0.5-3(2.5)MG/3ML NEB HHN SCH ×8 (00:56→20:21)
[2020-10-15] MEDS: MIDODRINE HCL 5MG TABLET NG SCH ×3 (05:20→22:28)
[2020-10-15] MEDS: DILTIAZEM HCL 30MG TABLET PO SCH ×3 (06:00→18:05)
[2020-10-15] MEDS: LEVOTHYROXINE SODIUM 150MCG TABLET PO SCH (06:24)
[2020-10-15 06:38] LABS: HEMATOCRIT. 27.6 % (42.0-52.0); MEAN CORPUSCULAR HEMOGLOBIN 28.7 pg (28.0-32.0); MEAN CORPUSCULAR VOLUME 88.4 fL (80.0-94.0); MEAN PLATELET VOLUME 9.7 fl (7.4-10.4); PLATELET 141 x1000/uL (130-400); RED BLOOD CELL COUNT 3.13 mill/uL (4.7-6.1); RED CELL DISTRIBUTION WIDTH 18.2 % (11.6-14.6)
[2020-10-15 06:47] LABS: CHLORIDE 114 mEq/L (98-107)
[2020-10-15] MEDS: VALPROATE SODIUM 250MG/5ML UDC NG SCH ×2 (08:02→17:29)
[2020-10-15] MEDS: BENZTROPINE MESYLATE 1MG TABLET PO SCH ×2 (08:02→17:30)
[2020-10-15 10:35] LABS: NUCLEATED RED BLOOD CELLS 1 /100 WBC; PLATELET ESTIMATE NORMAL
[2020-10-16] VITALS (16 sets, daily range): BP systolic 95–124; BP diastolic 53–91
[2020-10-16] MEDS: DILTIAZEM HCL 30MG TABLET PO SCH ×4 (00:29→18:00)
[2020-10-16] MEDS: IPRATROPIUM/ALBUTEROL 0.5-3(2.5)MG/3ML NEB HHN SCH ×6 (01:15→23:45)
[2020-10-16] MEDS: MIDODRINE HCL 5MG TABLET NG SCH ×3 (06:00→21:40)
[2020-10-16] MEDS: LEVOTHYROXINE SODIUM 150MCG TABLET PO SCH (06:06)
[2020-10-16] MEDS: VALPROATE SODIUM 250MG/5ML UDC NG SCH ×2 (09:16→17:00)
[2020-10-16] MEDS: BENZTROPINE MESYLATE 1MG TABLET PO SCH ×2 (09:20→17:00)
[2020-10-16] MEDS: IPRATROPIUM/ALBUTEROL 0.5-3(2.5)MG/3ML NEB HHN PRN (12:47)
[2020-10-16] MEDS ORDERED: BUPIVACAINE HCL/PF 0.5% (5MG/ML) 10ML ONE ×2 (15:05→15:06)
[2020-10-16] MEDS ORDERED: LIDOCAINE HCL/EPINEPHRINE 1%-EPI 1:100,000 20 ML VIAL ONE (15:05)
[2020-10-16] MEDS ORDERED: SODIUM CHLORIDE 0.9% INJ 10ML FLUSH IVF ONE (15:06)
[2020-10-16] MEDS ORDERED: POLYMYXIN B SULFATE 500000 UNITS/VIAL ONE (15:06)
[2020-10-16] MEDS ORDERED: VANCOMYCIN HCL 1 GM/VIAL ONE (15:06)
[2020-10-16] MEDS ORDERED: GLYCOPYRROLATE 0.2 MG/ML 2ML VIAL ONE (16:06)
[2020-10-16] MEDS ORDERED: SODIUM CHLORIDE 0.9% 10ML VIAL ONE (16:06)
[2020-10-16] MEDS ORDERED: METOCLOPRAMIDE HCL 10MG/2ML VIAL ONE (16:06)
[2020-10-16] MEDS ORDERED: ROCURONIUM BROMIDE 10MG/ML VIAL 5ML IV ONE ×2 (16:06→17:23)
[2020-10-16] MEDS ORDERED: CEFAZOLIN SODIUM 1000MG/VIAL ONE ×2 (16:06→16:37)
[2020-10-16] MEDS ORDERED: PROPOFOL 200MG/20ML VIAL IV ONE (16:06)
[2020-10-16] MEDS ORDERED: FENTANYL CITRATE/PF 50MCG/ML 2ML VIAL ONE (16:06)
[2020-10-16] MEDS ORDERED: SUCCINYLCHOLINE CHLORIDE 200MG/10ML IV ONE (16:06)
[2020-10-16] MEDS ORDERED: NEOSTIGMINE METHYLSULFATE 1MG/ML 10 ML VIAL ONE (16:06)
[2020-10-16] MEDS ORDERED: ONDANSETRON HCL 4MG/2ML INJ ONE (16:06)
[2020-10-16] MEDS ORDERED: MIDAZOLAM HCL 2 MG/2 ML VIAL ONE ×2 (16:06→17:47)
[2020-10-16] MEDS ORDERED: PHENYLEPHRINE HCL 10 MG/ML 1ML (IV VIAL) IV ONE (16:06)
[2020-10-16] MEDS ORDERED: ALBUMIN HUMAN 12.5G/250ML (5%) IV ONE ×2 (16:30→18:27)
[2020-10-16] MEDS ORDERED: ETOMIDATE 2MG/ML 10ML VIAL IV ONE (16:36)
[2020-10-16] MEDS ORDERED: HYDROMORPHONE HCL/PF 2MG/ML CPJ IV PRN (19:15)
[2020-10-16] MEDS ORDERED: HYDROCODONE/ACETAMINOPHEN 10/325MG TABLET PO PRN (19:15)
[2020-10-16 20:53] LABS: BG BASE EXCESS 0.7 mmol/L (-2.0-2.0); BG CARBOXYHEMOGLOBIN 0.2 % (0.5-1.5); BG DEOXYHEMOGLOBIN 1.5 % (0.0-5.0); BG FRACTION INSPIRED OXYGEN 60; BG HCO3 ACT 26.8 mmol/L (22.0-26.0); BG METHEMOGLOBIN 0.2 % (0.0-1.5); BG OXYGEN SATURATION 98.5 % (92.0-98.5); BG OXYHEMOGLOBIN 98.1 % (94.0-97.0); BG PCO2 49.7 mmHg (35.0-45.0); BG PH 7.349 (7.350-7.450); BG PO2 204.2 mmHg (75.0-100.0); BG TOTAL HEMOGLOBIN 10.3 g/dL (12.0-18.0); BG VENT MODE VENT - AC
[2020-10-16] MEDS: CEFAZOLIN 2,000 MG in DEXT 5% WATER 100 ML IV SCH (21:40)
[2020-10-16] MEDS ORDERED: MORPHINE SULFATE 2 MG/ML CPJ (NOT FOR IM USE) IV PRN (22:15)
[2020-10-16] MEDS ORDERED: LORAZEPAM 2MG/ML CPJ IV PRN (22:15)
[2020-10-17] VITALS (52 sets, daily range): BP systolic 73–123; BP diastolic 47–89
[2020-10-17] MEDS: IPRATROPIUM/ALBUTEROL 0.5-3(2.5)MG/3ML NEB HHN SCH ×5 (03:32→20:28)
[2020-10-17] MEDS: CEFAZOLIN 2,000 MG in DEXT 5% WATER 100 ML IV SCH ×3 (05:17→22:33)
[2020-10-17] MEDS: MIDODRINE HCL 5MG TABLET NG SCH ×3 (05:17→22:32)
[2020-10-17 05:47] LABS: CHLORIDE 122 mEq/L (98-107); HEMATOCRIT. 28.3 % (42.0-52.0); HEMOGLOBIN. 9.3 g/dL (14.0-18.0); MEAN CORPUSCULAR HEMOGLOBIN 28.9 pg (28.0-32.0); MEAN CORPUSCULAR VOLUME 88.1 fL (80.0-94.0); MEAN PLATELET VOLUME 9.2 fl (7.4-10.4); PLATELET 264 x1000/uL (130-400); RED BLOOD CELL COUNT 3.22 mill/uL (4.7-6.1); RED CELL DISTRIBUTION WIDTH 16.4 % (11.6-14.6)
[2020-10-17 05:54] LABS: PHOSPHORUS 2.5 mg/dL (2.5-4.9)
[2020-10-17] MEDS: DILTIAZEM HCL 30MG TABLET PO SCH ×4 (06:00→17:26)
[2020-10-17 06:06] LABS: BG SAMPLE SITE Rt Arterial
[2020-10-17 06:11] LABS: CREATINE KINASE 1780 IU/L (39-308)
[2020-10-17] MEDS: DEXTROSE 5% WATER 1,000 ML IV SCH (06:25)
[2020-10-17] MEDS ORDERED: SODIUM POLYSTYRENE SULFONATE 15 G/60 ML BOT PO SCH (08:00)
[2020-10-17] MEDS: VALPROATE SODIUM 250MG/5ML UDC NG SCH ×2 (08:44→17:26)
[2020-10-17] MEDS: BENZTROPINE MESYLATE 1MG TABLET PO SCH ×2 (08:44→17:27)
[2020-10-17] MEDS ORDERED: DEXT 5% IV PRN (09:00)
[2020-10-17] MEDS ORDERED: WATER IV PRN (09:00)
[2020-10-17] MEDS ORDERED: NOREPINEPHRINE IV PRN (09:00)
[2020-10-17] MEDS ORDERED: NOREPINEPHRINE 8 MG in DEXTROSE 5% WATER 250 ML IV PRN (09:15)
[2020-10-17] MEDS: LEVOTHYROXINE SODIUM 150MCG TABLET PO SCH (09:46)
[2020-10-17 10:19] LABS: NUCLEATED RED BLOOD CELLS 1 /100 WBC; PLATELET ESTIMATE NORMAL
[2020-10-17 12:28] LABS: BG BASE EXCESS 2.9 mmol/L (-2.0-2.0); BG CARBOXYHEMOGLOBIN 0.3 % (0.5-1.5); BG DEOXYHEMOGLOBIN 3.1 % (0.0-5.0); BG FRACTION INSPIRED OXYGEN 30; BG HCO3 ACT 27.9 mmol/L (22.0-26.0); BG METHEMOGLOBIN 0.2 % (0.0-1.5); BG OXYGEN SATURATION 96.9 % (92.0-98.5); BG OXYHEMOGLOBIN 96.4 % (94.0-97.0); BG PCO2 44.9 mmHg (35.0-45.0); BG PH 7.411 (7.350-7.450); BG PO2 102.7 mmHg (75.0-100.0); BG SAMPLE SITE RIGHT RADIAL; BG TOTAL HEMOGLOBIN 9.6 g/dL (12.0-18.0); BG VENT MODE VENT - CPAP
[2020-10-17] MEDS ORDERED: PANTOPRAZOLE SODIUM 40 MG/VIAL IV SCH (15:23)
[2020-10-17] MEDS ORDERED: FENTANYL CITRATE/PF 2,500 MCG in SODIUM CHLORIDE 0.9% 200 ML IV PRN (15:30)
[2020-10-17] MEDS ORDERED: PROPOFOL 10MG/ML 100ML 100 ML IV PRN (15:45)
[2020-10-17] MEDS ORDERED: ENOXAPARIN 40MG/0.4ML SYR SUBCUT SCH (16:00)
[2020-10-17] MEDS: ENOXAPARIN 30MG/0.3ML SYR SUBCUT SCH (17:26)
[2020-10-18] VITALS (65 sets, daily range): BP systolic 78–136; BP diastolic 34–89
[2020-10-18] MEDS: IPRATROPIUM/ALBUTEROL 0.5-3(2.5)MG/3ML NEB HHN SCH ×4 (00:15→20:29)
[2020-10-18] MEDS: DEXTROSE 5% WATER 1,000 ML IV SCH (01:31)
[2020-10-18 05:53] LABS: PHOSPHORUS 2.9 mg/dL (2.5-4.9)
[2020-10-18] MEDS: CEFAZOLIN 2,000 MG in DEXT 5% WATER 100 ML IV SCH ×2 (05:59→13:29)
[2020-10-18] MEDS: MIDODRINE HCL 5MG TABLET NG SCH ×3 (06:00→22:39)
[2020-10-18] MEDS: ENOXAPARIN 30MG/0.3ML SYR SUBCUT SCH (06:00)
[2020-10-18] MEDS: DILTIAZEM HCL 30MG TABLET PO SCH ×5 (06:00→23:53)
[2020-10-18 06:37] LABS: HEMATOCRIT. 27.7 % (42.0-52.0); HEMOGLOBIN. 8.9 g/dL (14.0-18.0); MEAN CORPUSCULAR VOLUME 89.9 fL (80.0-94.0); PLATELET 307 x1000/uL (130-400); RED BLOOD CELL COUNT 3.09 mill/uL (4.7-6.1)
[2020-10-18] MEDS: LEVOTHYROXINE SODIUM 150MCG TABLET PO SCH (08:51)
[2020-10-18] MEDS: BENZTROPINE MESYLATE 1MG TABLET PO SCH ×2 (08:52→18:05)
[2020-10-18] MEDS: VALPROATE SODIUM 250MG/5ML UDC NG SCH ×2 (08:52→18:05)
[2020-10-18] MEDS: FAMOTIDINE 20MG/2ML VIAL IV SCH (08:57)
[2020-10-18] MEDS: SODIUM CHLORIDE 0.45% 1,000 ML IV SCH ×2 (08:58→18:08)
[2020-10-18 09:05] LABS: BG BASE EXCESS 2.1 mmol/L (-2.0-2.0); BG CARBOXYHEMOGLOBIN 0.6 % (0.5-1.5); BG DEOXYHEMOGLOBIN 1.6 % (0.0-5.0); BG FRACTION INSPIRED OXYGEN 30; BG HCO3 ACT 26.2 mmol/L (22.0-26.0); BG METHEMOGLOBIN 0.3 % (0.0-1.5); BG OXYGEN SATURATION 98.4 % (92.0-98.5); BG OXYHEMOGLOBIN 97.5 % (94.0-97.0); BG PCO2 38.8 mmHg (35.0-45.0); BG PH 7.448 (7.350-7.450); BG PO2 134.6 mmHg (75.0-100.0); BG SAMPLE SITE RIGHT RADIAL; BG TOTAL HEMOGLOBIN 8.5 g/dL (12.0-18.0); BG VENT MODE VENT - AC
[2020-10-18 09:09] LABS: PLATELET ESTIMATE NORMAL
[2020-10-18 12:46] LABS: BG BASE EXCESS 1.8 mmol/L (-2.0-2.0); BG DEOXYHEMOGLOBIN 1.4 % (0.0-5.0); BG FRACTION INSPIRED OXYGEN 40; BG HCO3 ACT 25.9 mmol/L (22.0-26.0); BG METHEMOGLOBIN 0.2 % (0.0-1.5); BG OXYGEN SATURATION 98.6 % (92.0-98.5); BG OXYHEMOGLOBIN 98.4 % (94.0-97.0); BG PH 7.451 (7.350-7.450); BG SAMPLE SITE RIGHT RADIAL; BG TOTAL HEMOGLOBIN 8.7 g/dL (12.0-18.0); BG VENT MODE VENT - CPAP
[2020-10-18] MEDS: CEFAZOLIN 1000MG PREMIX 50 ML IV SCH (22:39)
[2020-10-19] VITALS (55 sets, daily range): BP systolic 96–154; BP diastolic 48–83
[2020-10-19] MEDS: IPRATROPIUM/ALBUTEROL 0.5-3(2.5)MG/3ML NEB HHN SCH ×6 (00:39→20:19)
[2020-10-19] MEDS: SODIUM CHLORIDE 0.45% 1,000 ML IV SCH ×2 (04:04→14:34)
[2020-10-19 05:26] LABS: HEMATOCRIT. 22.2 % (42.0-52.0); HEMOGLOBIN. 7.3 g/dL (14.0-18.0); MEAN CORPUSCULAR HEMOGLOBIN 28.9 pg (28.0-32.0); MEAN PLATELET VOLUME 8.8 fl (7.4-10.4); PLATELET 354 x1000/uL (130-400); RED BLOOD CELL COUNT 2.52 mill/uL (4.7-6.1); RED CELL DISTRIBUTION WIDTH 17.1 % (11.6-14.6)
[2020-10-19 05:40] LABS: PHOSPHORUS 2.8 mg/dL (2.5-4.9)
[2020-10-19] MEDS: DILTIAZEM HCL 30MG TABLET PO SCH ×4 (05:47→18:29)
[2020-10-19] MEDS: MIDODRINE HCL 5MG TABLET NG SCH ×3 (05:47→21:57)
[2020-10-19] MEDS: MORPHINE SULFATE 2 MG/ML CPJ (NOT FOR IM USE) IV PRN (05:49)
[2020-10-19] MEDS: CEFAZOLIN 1000MG PREMIX 50 ML IV SCH (05:55)
[2020-10-19] MEDS: ENOXAPARIN 40MG/0.4ML SYR SUBCUT SCH (08:39)
[2020-10-19] MEDS: LEVOTHYROXINE SODIUM 150MCG TABLET PO SCH (08:41)
[2020-10-19] MEDS: FAMOTIDINE 20MG/2ML VIAL IV SCH (08:41)
[2020-10-19] MEDS: BENZTROPINE MESYLATE 1MG TABLET PO SCH ×2 (08:41→18:29)
[2020-10-19] MEDS: VALPROATE SODIUM 250MG/5ML UDC NG SCH ×2 (08:41→18:29)
[2020-10-19 12:33] LABS: NUCLEATED RED BLOOD CELLS 1 /100 WBC; PLATELET ESTIMATE NORMAL
[2020-10-20] VITALS (66 sets, daily range): BP systolic 88–171; BP diastolic 47–97
[2020-10-20] MEDS: IPRATROPIUM/ALBUTEROL 0.5-3(2.5)MG/3ML NEB HHN SCH ×6 (00:14→20:17)
[2020-10-20] MEDS: SODIUM CHLORIDE 0.45% 1,000 ML IV SCH ×2 (00:26→10:05)
[2020-10-20] MEDS: DILTIAZEM HCL 30MG TABLET PO SCH ×4 (06:00→17:13)
[2020-10-20] MEDS: MIDODRINE HCL 5MG TABLET NG SCH ×3 (06:07→22:32)
[2020-10-20 06:25] LABS: BASOPHILS % 0.6 % (0.0-2.0); EOSINOPHILS % 2.2 % (0.0-5.0); LYMPHOCYTES % 12.2 % (20.0-50.0); MEAN CORPUSCULAR HEMOGLOBIN 29.2 pg (28.0-32.0); MEAN CORPUSCULAR VOLUME 88.5 fL (80.0-94.0); MEAN PLATELET VOLUME 8.5 fl (7.4-10.4); MONOCYTES % 6.3 % (2.0-8.0); NEUTROPHILS % 78.7 % (40.0-76.0); PLATELET 345 x1000/uL (130-400); RED BLOOD CELL COUNT 2.18 mill/uL (4.7-6.1); RED CELL DISTRIBUTION WIDTH 17.1 % (11.6-14.6)
[2020-10-20 06:26] LABS: CHLORIDE 114 mEq/L (98-107)
[2020-10-20 06:31] LABS: HEMOGLOBIN. 6.4 g/dL (14.0-18.0); PHOSPHORUS 2.9 mg/dL (2.5-4.9)
[2020-10-20 06:35] LABS: HEMATOCRIT. 19.3 % (42.0-52.0)
[2020-10-20] MEDS: VALPROATE SODIUM 250MG/5ML UDC NG SCH ×2 (08:13→17:13)
[2020-10-20] MEDS: ENOXAPARIN 40MG/0.4ML SYR SUBCUT SCH (08:13)
[2020-10-20] MEDS: LEVOTHYROXINE SODIUM 150MCG TABLET PO SCH (08:13)
[2020-10-20] MEDS: BENZTROPINE MESYLATE 1MG TABLET PO SCH ×2 (08:13→17:13)
[2020-10-20] MEDS: FAMOTIDINE 20MG/2ML VIAL IV SCH (08:13)
[2020-10-20] MEDS: DEXTROSE 5% WATER 1,000 ML IV SCH (10:56)
[2020-10-20 15:15] LABS: HEMATOCRIT 26.1 % (42.0-52.0); HEMOGLOBIN 8.6 g/dL (14.0-18.0)
[2020-10-21] VITALS (53 sets, daily range): BP systolic 91–148; BP diastolic 51–98
[2020-10-21] MEDS: IPRATROPIUM/ALBUTEROL 0.5-3(2.5)MG/3ML NEB HHN SCH ×6 (00:15→20:41)
[2020-10-21] MEDS: DILTIAZEM HCL 30MG TABLET PO SCH ×4 (00:25→17:00)
[2020-10-21 05:32] LABS: HEMATOCRIT. 22.1 % (42.0-52.0); HEMOGLOBIN. 7.3 g/dL (14.0-18.0); MEAN CORPUSCULAR HEMOGLOBIN 28.7 pg (28.0-32.0); MEAN CORPUSCULAR VOLUME 86.6 fL (80.0-94.0); MEAN PLATELET VOLUME 8.4 fl (7.4-10.4); PLATELET 365 x1000/uL (130-400); RED BLOOD CELL COUNT 2.55 mill/uL (4.7-6.1); RED CELL DISTRIBUTION WIDTH 18.5 % (11.6-14.6)
[2020-10-21 05:36] LABS: CHLORIDE 114 mEq/L (98-107)
[2020-10-21 05:44] LABS: CREATINE KINASE 613 IU/L (39-308)
[2020-10-21] MEDS: MIDODRINE HCL 5MG TABLET NG SCH ×3 (06:13→22:10)
[2020-10-21] MEDS: LEVOTHYROXINE SODIUM 150MCG TABLET PO SCH (08:23)
[2020-10-21] MEDS: BENZTROPINE MESYLATE 1MG TABLET PO SCH ×2 (08:23→16:59)
[2020-10-21] MEDS: VALPROATE SODIUM 250MG/5ML UDC NG SCH ×2 (08:23→16:59)
[2020-10-21] MEDS: FAMOTIDINE 20MG/2ML VIAL IV SCH (08:23)
[2020-10-21] MEDS: DEXTROSE 5% WATER 1,000 ML IV SCH (12:21)
[2020-10-21 15:02] LABS: HEMATOCRIT 25.6 % (42.0-52.0)
[2020-10-21 16:07] LABS: PLATELET ESTIMATE NORMAL
[2020-10-22] VITALS (64 sets, daily range): BP systolic 77–147; BP diastolic 45–86
[2020-10-22] MEDS: DILTIAZEM HCL 30MG TABLET PO SCH ×4 (00:27→17:23)
[2020-10-22] MEDS: IPRATROPIUM/ALBUTEROL 0.5-3(2.5)MG/3ML NEB HHN SCH ×6 (01:10→20:31)
[2020-10-22 05:50] LABS: HEMATOCRIT. 25.7 % (42.0-52.0); HEMOGLOBIN. 8.7 g/dL (14.0-18.0); MEAN CORPUSCULAR HEMOGLOBIN 29.6 pg (28.0-32.0); MEAN CORPUSCULAR VOLUME 87.2 fL (80.0-94.0); MEAN PLATELET VOLUME 8.4 fl (7.4-10.4); PLATELET 315 x1000/uL (130-400); RED BLOOD CELL COUNT 2.94 mill/uL (4.7-6.1)
[2020-10-22 05:54] LABS: CHLORIDE 114 mEq/L (98-107)
[2020-10-22 06:05] LABS: PHOSPHORUS 2.2 mg/dL (2.5-4.9)
[2020-10-22] MEDS: MIDODRINE HCL 5MG TABLET NG SCH ×2 (06:20→13:00)
[2020-10-22] MEDS: FAMOTIDINE 20MG/2ML VIAL IV SCH (08:34)
[2020-10-22] MEDS: VALPROATE SODIUM 250MG/5ML UDC NG SCH ×2 (08:35→17:23)
[2020-10-22] MEDS: BENZTROPINE MESYLATE 1MG TABLET PO SCH ×2 (08:35→17:23)
[2020-10-22] MEDS: LEVOTHYROXINE SODIUM 150MCG TABLET PO SCH (08:35)
[2020-10-22 09:20] LABS: NUCLEATED RED BLOOD CELLS 1 /100 WBC
[2020-10-22 09:21] LABS: PLATELET ESTIMATE NORMAL
[2020-10-22] MEDS: DEXTROSE 5% WATER 1,000 ML IV SCH (10:57)
[2020-10-22] MEDS ORDERED: POTASSIUM PHOS,M-BASIC-D-BASIC 20 MMOL in DEXT 5% WATER 243.3333 ML IV SCH (11:00)
[2020-10-22] MEDS ORDERED: BISACODYL 5MG TABLET PO PRN (15:15)
[2020-10-22] MEDS: MORPHINE SULFATE 2 MG/ML CPJ (NOT FOR IM USE) IV PRN (20:37)
[2020-10-23] VITALS (37 sets, daily range): BP systolic 68–139; BP diastolic 30–73
[2020-10-23] MEDS: MIDODRINE HCL 5MG TABLET NG SCH ×5 (00:51→23:29)
[2020-10-23] MEDS: IPRATROPIUM/ALBUTEROL 0.5-3(2.5)MG/3ML NEB HHN SCH ×6 (01:07→20:00)
[2020-10-23 05:52] LABS: HEMATOCRIT. 26.2 % (42.0-52.0); MEAN CORPUSCULAR HEMOGLOBIN 29.5 pg (28.0-32.0); MEAN CORPUSCULAR VOLUME 86.2 fL (80.0-94.0); MEAN PLATELET VOLUME 8.2 fl (7.4-10.4); PLATELET 294 x1000/uL (130-400); RED BLOOD CELL COUNT 3.03 mill/uL (4.7-6.1); RED CELL DISTRIBUTION WIDTH 17.2 % (11.6-14.6)
[2020-10-23 05:55] LABS: CHLORIDE 113 mEq/L (98-107)
[2020-10-23] MEDS: DILTIAZEM HCL 30MG TABLET PO SCH ×5 (06:00→23:55)
[2020-10-23 06:11] LABS: PHOSPHORUS 2.8 mg/dL (2.5-4.9)
[2020-10-23] MEDS: BENZTROPINE MESYLATE 1MG TABLET PO SCH ×2 (08:58→18:17)
[2020-10-23] MEDS: FAMOTIDINE 20MG/2ML VIAL IV SCH (08:59)
[2020-10-23] MEDS: LEVOTHYROXINE SODIUM 150MCG TABLET PO SCH (08:59)
[2020-10-23] MEDS: VALPROATE SODIUM 250MG/5ML UDC NG SCH ×2 (08:59→18:16)
[2020-10-23 10:58] LABS: PLATELET ESTIMATE NORMAL
[2020-10-23] MEDS: DEXTROSE 5% WATER 1,000 ML IV SCH (12:13)
[2020-10-23] MEDS: ONDANSETRON HCL 4MG/2ML INJ IV PRN (22:30)
[2020-10-23 22:31] LABS: CLARITY URINE CLEAR (CLEAR); COLOR URINE YELLOW (YELLOW); KETONES URINE NEGATIVE (NEGATIVE); LEUKOCYTE ESTERASE URINE NEGATIVE (NEGATIVE); NITRITE URINE NEGATIVE (NEGATIVE); OCCULT BLOOD URINE 1+ (NEGATIVE); PROTEIN URINE TRACE (NEGATIVE); SPECIFIC GRAVITY URINE 1.012 (1.005-1.030)
[2020-10-23] MEDS ORDERED: TRAZODONE HCL 50MG TABLET PO NR (23:00)
[2020-10-23] MEDS ORDERED: HALOPERIDOL LACTATE 5MG/ML VIAL IM SCH (23:00)
[2020-10-23] MEDS ORDERED: VANCOMYCIN 1 G PREMIX 200 ML IV SCH (23:15)
[2020-10-23 23:50] LABS: HEMATOCRIT. 25.9 % (42.0-52.0); HEMOGLOBIN. 8.7 g/dL (14.0-18.0); MEAN CORPUSCULAR HEMOGLOBIN 29.2 pg (28.0-32.0); MEAN CORPUSCULAR VOLUME 87.3 fL (80.0-94.0); MEAN PLATELET VOLUME 8.5 fl (7.4-10.4); PLATELET 289 x1000/uL (130-400); RED BLOOD CELL COUNT 2.97 mill/uL (4.7-6.1); RED CELL DISTRIBUTION WIDTH 17.3 % (11.6-14.6)
[2020-10-24] VITALS (12 sets, daily range): BP systolic 103–115; BP diastolic 53–65
[2020-10-24 00:16] LABS: PLATELET ESTIMATE NORMAL
[2020-10-24] MEDS: IPRATROPIUM/ALBUTEROL 0.5-3(2.5)MG/3ML NEB HHN SCH ×6 (00:29→20:43)
[2020-10-24] MEDS ORDERED: VANCOMYCIN 2,000 MG in DEXT 5% WATER 500 ML IV NR (00:30)
[2020-10-24] MEDS ORDERED: PIPERACILLIN SODIUM/TAZOBACTAM 4.5 G in DEXT 5% WATER 100 ML IV NR (00:30)
[2020-10-24] MEDS: DILTIAZEM HCL 30MG TABLET PO SCH ×3 (05:46→17:16)
[2020-10-24] MEDS ORDERED: PIPERACILLIN/TAZOBACTAM 3.375 G in DEXT 5% WATER 100 ML IV SCH (06:00)
[2020-10-24 06:40] LABS: HEMATOCRIT. 24.6 % (42.0-52.0); HEMOGLOBIN. 8.4 g/dL (14.0-18.0); MEAN CORPUSCULAR HEMOGLOBIN 29.8 pg (28.0-32.0); MEAN CORPUSCULAR VOLUME 87.5 fL (80.0-94.0); MEAN PLATELET VOLUME 8.3 fl (7.4-10.4); PLATELET 276 x1000/uL (130-400); RED BLOOD CELL COUNT 2.82 mill/uL (4.7-6.1); RED CELL DISTRIBUTION WIDTH 17.2 % (11.6-14.6)
[2020-10-24 06:47] LABS: CHLORIDE 111 mEq/L (98-107)
[2020-10-24] MEDS: LEVOTHYROXINE SODIUM 150MCG TABLET PO SCH (09:13)
[2020-10-24] MEDS: FAMOTIDINE 20MG/2ML VIAL IV SCH (09:13)
[2020-10-24] MEDS: VALPROATE SODIUM 250MG/5ML UDC NG SCH ×2 (09:14→17:16)
[2020-10-24] MEDS: BENZTROPINE MESYLATE 1MG TABLET PO SCH ×2 (09:14→17:17)
[2020-10-24] MEDS ORDERED: CEFTRIAXONE 1 G PREMIX 50 ML IV SCH (10:30)
[2020-10-24] MEDS ORDERED: VANCOMYCIN 1 G PREMIX 200 ML IV SCH (12:00)
[2020-10-24] MEDS: DEXTROSE 5% WATER 1,000 ML IV SCH (12:06)
[2020-10-24] MEDS ORDERED: VANCOMYCIN 750 MG PREMIX 150 ML IV SCH (13:00)
[2020-10-24] MEDS: CEFTRIAXONE 1,000 MG in DEXTROSE 5% WATER 50 ML IV SCH (13:19)
[2020-10-24] MEDS: MIDODRINE HCL 5MG TABLET NG SCH ×2 (13:39→21:34)
[2020-10-24 16:25] LABS: PLATELET ESTIMATE NORMAL
[2020-10-25] VITALS (12 sets, daily range): BP systolic 97–160; BP diastolic 56–80
[2020-10-25] MEDS: IPRATROPIUM/ALBUTEROL 0.5-3(2.5)MG/3ML NEB HHN SCH ×7 (00:15→23:50)
[2020-10-25] MEDS: DILTIAZEM HCL 30MG TABLET PO SCH ×5 (00:29→23:45)
[2020-10-25] MEDS: MIDODRINE HCL 5MG TABLET NG SCH ×3 (05:20→22:24)
[2020-10-25 07:02] LABS: CHLORIDE 111 mEq/L (98-107)
[2020-10-25] MEDS: BENZTROPINE MESYLATE 1MG TABLET PO SCH ×2 (08:02→16:48)
[2020-10-25] MEDS: VALPROATE SODIUM 250MG/5ML UDC NG SCH ×2 (08:02→16:48)
[2020-10-25] MEDS: LEVOTHYROXINE SODIUM 150MCG TABLET PO SCH (08:02)
[2020-10-25] MEDS: FAMOTIDINE 20MG/2ML VIAL IV SCH (08:02)
[2020-10-25] MEDS: CEFTRIAXONE 1,000 MG in DEXTROSE 5% WATER 50 ML IV SCH (11:30)
[2020-10-25] MEDS ORDERED: MIDO5TAB4 NG (15:47)
[2020-10-25] MEDS: FAMOTIDINE 20MG TABLET PO SCH (22:24)
[2020-10-26] VITALS (8 sets, daily range): BP systolic 103–155; BP diastolic 48–83
[2020-10-26] MEDS: IPRATROPIUM/ALBUTEROL 0.5-3(2.5)MG/3ML NEB HHN SCH ×3 (04:00→11:06)
[2020-10-26] MEDS: MIDODRINE HCL 5MG TABLET NG SCH (06:00)
[2020-10-26] MEDS: DILTIAZEM HCL 30MG TABLET PO SCH ×2 (06:00→12:00)
[2020-10-26] MEDS: LEVOTHYROXINE SODIUM 150MCG TABLET PO SCH (07:48)
[2020-10-26] MEDS: FAMOTIDINE 20MG TABLET PO SCH (08:39)
[2020-10-26] MEDS: VALPROATE SODIUM 250MG/5ML UDC NG SCH (08:39)
[2020-10-26] MEDS: BENZTROPINE MESYLATE 1MG TABLET PO SCH (08:39)
[2020-10-26 09:44] LABS: BASOPHILS % 1.6 % (0.0-2.0); EOSINOPHILS % 2.3 % (0.0-5.0); HEMATOCRIT. 27.4 % (42.0-52.0); HEMOGLOBIN. 9.1 g/dL (14.0-18.0); LYMPHOCYTES % 24.3 % (20.0-50.0); MEAN CORPUSCULAR HEMOGLOBIN 28.9 pg (28.0-32.0); MEAN CORPUSCULAR VOLUME 87.4 fL (80.0-94.0); MEAN PLATELET VOLUME 8.2 fl (7.4-10.4); MONOCYTES % 13.4 % (2.0-8.0); NEUTROPHILS % 58.4 % (40.0-76.0); PLATELET 346 x1000/uL (130-400); RED BLOOD CELL COUNT 3.14 mill/uL (4.7-6.1); RED CELL DISTRIBUTION WIDTH 17.2 % (11.6-14.6)
[2020-10-26 09:59] LABS: CHLORIDE 109 mEq/L (98-107)
[2020-10-26] MEDS: CEFTRIAXONE 1,000 MG in DEXTROSE 5% WATER 50 ML IV SCH (12:00)
== END 2020-10-26 14:30 | DRG 710 ==
LOC: ER 07:05 → 5EST 10:52 → ENRESERV 13:06 → MICUSO 18:22 → 3WST 10-12 12:20 → CVICU 10-16 18:18 → 5EST 10-23 10:46
PROVIDERS: ADMIT Family Medicine Adult Medicine; ATTEND Family Medicine Adult Medicine
PROC: 02HV33Z Insertion of Infusion Device into Superior Vena Cava, Percutaneous Approach (ICD-10-PCS; 2020-10-08)
PROC: B548ZZA Ultrasonography of Superior Vena Cava, Guidance (ICD-10-PCS; 2020-10-08)
PROC: 5A1D70Z Performance of Urinary Filtration, Intermittent, Less than 6 Hours Per Day (ICD-10-PCS; 2020-10-08)
PROC: 4A10X4Z Monitoring of Central Nervous Electrical Activity, External Approach (ICD-10-PCS; 2020-10-09)
PROC: 5A1D70Z Performance of Urinary Filtration, Intermittent, Less than 6 Hours Per Day (ICD-10-PCS; 2020-10-09)
PROC: 30233N1 Transfusion of Nonautologous Red Blood Cells into Peripheral Vein, Percutaneous Approach (ICD-10-PCS; principal; 2020-10-10)
PROC: 0QS704Z Reposition Left Upper Femur with Internal Fixation Device, Open Approach (ICD-10-PCS; 2020-10-16)
PROC: 5A1945Z Respiratory Ventilation, 24-96 Consecutive Hours (ICD-10-PCS; 2020-10-16)
PROC: 0BH17EZ Insertion of Endotracheal Airway into Trachea, Via Natural or Artificial Opening (ICD-10-PCS; 2020-10-16)
DX: A41.9 Sepsis, unspecified organism (principal); R65.21 Severe sepsis with septic shock; J96.02 Acute respiratory failure with hypercapnia; J69.0 Pneumonitis due to inhalation of food and vomit; E43 Unspecified severe protein-calorie malnutrition; G93.41 Metabolic encephalopathy; E87.4 Mixed disorder of acid-base balance; R13.12 Dysphagia, oropharyngeal phase; D69.6 Thrombocytopenia, unspecified; E11.22 Type 2 diabetes mellitus with diabetic chronic kidney disease; S72.22XA Displaced subtrochanteric fracture of left femur, initial encounter for closed fracture; D64.9 Anemia, unspecified; M62.82 Rhabdomyolysis; N18.9 Chronic kidney disease, unspecified; E03.9 Hypothyroidism, unspecified; E78.5 Hyperlipidemia, unspecified; E87.5 Hyperkalemia; F20.9 Schizophrenia, unspecified; G40.909 Epilepsy, unspecified, not intractable, without status epilepticus; I48.92 Unspecified atrial flutter; E78.00 Pure hypercholesterolemia, unspecified; R00.1 Bradycardia, unspecified; W18.39XA Other fall on same level, initial encounter; E66.9 Obesity, unspecified; E87.0 Hyperosmolality and hypernatremia; N17.9 Acute kidney failure, unspecified; K76.89 Other specified diseases of liver; I13.0 Hypertensive heart and chronic kidney disease with heart failure and stage 1 through stage 4 chronic kidney disease, or unspecified chronic kidney disease; I50.9 Heart failure, unspecified; N13.9 Obstructive and reflux uropathy, unspecified; Z20.822 Contact with and (suspected) exposure to COVID-19; N39.0 Urinary tract infection, site not specified; D63.8 Anemia in other chronic diseases classified elsewhere; Z86.73 Personal history of transient ischemic attack (TIA), and cerebral infarction without residual deficits; Z79.1 Long term (current) use of non-steroidal anti-inflammatories (NSAID); Z79.899 Other long term (current) drug therapy; Y93.89 Activity, other specified; Y92.89 Other specified places as the place of occurrence of the external cause; Y99.8 Other external cause status; Z68.30 Body mass index [BMI] 30.0-30.9, adult; Z79.890 Hormone replacement therapy
CPT/HCPCS: 36415; 36556; 36600; 70496; 70498; 70551; 71045; 73502; 73552; 73560; 76000; 76700; 76770; 76937; 80048; 80053; 80061; 80076; 80165; 80305; 80320; 81003; 82140; 82270; 82375; 82550; 82607; 82728; 82746; 82805; 82962; 83036; 83540; 83550; 83605; 83721; 83735; 83880; 84100; 84132; 84134; 84439; 84443; 84450; 84478; 84484; 85014; 85018; 85025; 85044; 86705; 86706; 86709; 86803; 86850; 86900; 86920; 87070; 87340; 87426; 92610; 93005; 93306; 94002; 94003; 94640; 94644; 94667; 95816; 97110; 97162; 97164; 97530; 99291; A6261; C1713; C1752; C1769; C9113; J0330; J0690; J0692; J0696; J1265; J1630; J1644; J1650; J1815; J1940; J2250; J2270; J2370; J2405; J2543; J2704; J2710; J2765; J3010; J3370; J3475; J3490; J7030; J7040; J7050; J7060; J7070; J7608; L8514; P9016; P9021; P9041; Q9967; A4315; G0480

== ENCOUNTER 2021-07-25 17:50 | Inpatient (IN) | payer MEDICARE, MEDICAID ==
[~2021-07-25] VITALS: Ht 205.7 cm; Wt 77.6 kg
[~2021-07-25 17:50] MED LIST changes: -ACET160S PO; +BISA-81 PO; +DEXTL MT; +DILT30TA3 PO; +DIPH25TA24 PO; +DOCU-150 PO; +FAMO20TA8 PO; +LOV40 SQ; +MIDO5TAB4 NG; +MYL30 PO; +ONDA4TAB5 PO; +TOPUD PO; +VALP250S22 GT
[2021-07-25] MEDS ORDERED: LORAZEPAM 2MG/ML CPJ IM STA (18:34)
[2021-07-25] MEDS ORDERED: SODIUM CHLORIDE 0.9% 1,000 ML IV ONE (18:45)
[2021-07-25 20:05] LABS: BASOPHILS % 0.4 % (0.0-2.0); EOSINOPHILS % 0.9 % (0.0-5.0); HEMATOCRIT. 41.4 % (42.0-52.0); HEMOGLOBIN. 13.7 g/dL (14.0-18.0); LYMPHOCYTES % 15.3 % (20.0-50.0); MEAN CORPUSCULAR VOLUME 78.2 fL (80.0-94.0); MEAN PLATELET VOLUME 8.5 fl (7.4-10.4); NEUTROPHILS % 75.4 % (40.0-76.0); PLATELET 199 x1000/uL (130-400); RED BLOOD CELL COUNT 5.29 mill/uL (4.7-6.1); RED CELL DISTRIBUTION WIDTH 15.8 % (11.6-14.6)
[2021-07-25 20:09] LABS: CHLORIDE 106 mEq/L (98-107)
[2021-07-26] MEDS ORDERED: GUAIFENESIN 200MG/10ML SUGAR FREE UDC PO PRN (00:45)
[2021-07-26] MEDS ORDERED: DOCUSATE SODIUM 100MG CAPSULE PO PRN (00:45)
[2021-07-26] MEDS ORDERED: ACETAMINOPHEN 325MG TABLET PO PRN ×2 (00:45)
[2021-07-26] MEDS ORDERED: CLONIDINE 0.1MG TABLET PO PRN (00:45)
[2021-07-26] MEDS ORDERED: ONDANSETRON HCL 4MG/2ML INJ IV PRN (00:45)
[2021-07-26] MEDS ORDERED: NA PHOS,M-B/NA PHOS,DI-BA ENEMA 118ML PR PRN (00:45)
[2021-07-26] MEDS ORDERED: MAGNESIUM/ALUMINUM HYDROXIDE/SIMETHICONE 30ML UDC PO PRN (00:45)
[2021-07-26] MEDS ORDERED: IPRATROPIUM/ALBUTEROL 0.5-3(2.5)MG/3ML NEB HHN PRN (00:45)
[2021-07-26] MEDS ORDERED: ACETAMINOPHEN 650MG SUPP PR PRN ×2 (00:45)
[2021-07-26] MEDS ORDERED: DIPHENHYDRAMINE 50MG/ML VIAL IV PRN (00:45)
[2021-07-26] MEDS: LAMOTRIGINE 25MG TABLET PO SCH ×2 (02:21→08:55)
[2021-07-26 06:22] VITALS: BP 109/34
[2021-07-26 08:00] VITALS: BP 121/63
[2021-07-26] MEDS: QUETIAPINE FUMARATE 25MG TABLET PO SCH ×2 (08:55→21:00)
[2021-07-26] MEDS ORDERED: HALOPERIDOL LACTATE 5MG/ML VIAL IM PRN (10:45)
[2021-07-26 12:00] VITALS: BP 116/68
[2021-07-26 16:00] VITALS: BP 144/80
[2021-07-26 16:13] LABS: BASOPHILS % 0.8 % (0.0-2.0); EOSINOPHILS % 1.5 % (0.0-5.0); LYMPHOCYTES % 18.4 % (20.0-50.0); MEAN CORPUSCULAR HEMOGLOBIN 25.9 pg (28.0-32.0); MEAN CORPUSCULAR VOLUME 79.5 fL (80.0-94.0); MONOCYTES % 7.4 % (2.0-8.0); NEUTROPHILS % 71.9 % (40.0-76.0); RED BLOOD CELL COUNT 5.41 mill/uL (4.7-6.1)
[2021-07-26 16:42] LABS: MEAN PLATELET VOLUME 8.5 fl (7.4-10.4); PLATELET 150 x1000/uL (130-400)
[2021-07-26 16:46] LABS: CHLORIDE 110 mEq/L (98-107)
[2021-07-26 16:53] LABS: LDL CHOLESTEROL 98 mg/dL (5-100)
[2021-07-26 16:54] LABS: HDL CHOLESTEROL 56 mg/dL (40-59)
[2021-07-27] MEDS ORDERED: LIDOCAINE HCL 1% 10 MG/ML 10ML VIAL IJ SCH ×2 (01:00→09:00)
[2021-07-27 04:00] VITALS: BP 123/72
[2021-07-27 08:00] VITALS: BP 141/67
[2021-07-27] MEDS ORDERED: OLANZAPINE 10 MG/VIAL IM SCH (08:00)
[2021-07-27] MEDS ORDERED: HALOPERIDOL LACTATE 5MG/ML VIAL IM SCH (08:00)
[2021-07-27] MEDS ORDERED: LIDOCAINE HCL 1% 20ML VIAL (Pyxis) INJ INFIL SCH (09:00)
[2021-07-27] MEDS ORDERED: CEFTRIAXONE SODIUM 1 G/VIAL IM SCH (09:00)
[2021-07-27] MEDS: QUETIAPINE FUMARATE 25MG TABLET PO SCH ×2 (09:41→21:19)
[2021-07-27] MEDS: LAMOTRIGINE 25MG TABLET PO SCH (09:41)
[2021-07-27 11:03] LABS: BASOPHILS % 0.6 % (0.0-2.0); HEMOGLOBIN. 13.6 g/dL (14.0-18.0); LYMPHOCYTES % 12.8 % (20.0-50.0); MEAN CORPUSCULAR HEMOGLOBIN 25.5 pg (28.0-32.0); MEAN CORPUSCULAR VOLUME 79.2 fL (80.0-94.0); MEAN PLATELET VOLUME 8.8 fl (7.4-10.4); MONOCYTES % 5.4 % (2.0-8.0); NEUTROPHILS % 79.2 % (40.0-76.0); PLATELET 193 x1000/uL (130-400); RED BLOOD CELL COUNT 5.31 mill/uL (4.7-6.1); RED CELL DISTRIBUTION WIDTH 16.1 % (11.6-14.6)
[2021-07-27 11:08] LABS: CHLORIDE 110 mEq/L (98-107)
[2021-07-27 11:17] LABS: CREATINE KINASE 88 IU/L (39-308)
[2021-07-27 12:00] VITALS: BP 145/80
[2021-07-27] MEDS ORDERED: LORAZEPAM 2MG/ML CPJ IM NR (13:00)
[2021-07-27 16:00] VITALS: BP 123/80
[2021-07-27 20:00] VITALS: BP 115/81
[2021-07-27] MEDS: DEXT 5%/LACTATED RINGERS 1,000 ML IV SCH (21:19)
[2021-07-28] VITALS: BP 100/71
[2021-07-28 04:00] VITALS: BP 103/69
[2021-07-28 08:12] VITALS: BP 102/61
[2021-07-28] MEDS: LAMOTRIGINE 25MG TABLET PO SCH (09:25)
[2021-07-28] MEDS: QUETIAPINE FUMARATE 25MG TABLET PO SCH ×2 (09:25→21:25)
[2021-07-28 12:00] VITALS: BP 115/70
[2021-07-28] MEDS: DEXT 5%/LACTATED RINGERS 1,000 ML IV SCH ×2 (12:15→21:25)
[2021-07-28 16:00] VITALS: BP 100/65
[2021-07-29 02:11] LABS: CLARITY URINE CLEAR (CLEAR); COLOR URINE YELLOW (YELLOW); KETONES URINE NEGATIVE (NEGATIVE); LEUKOCYTE ESTERASE URINE 1+ (NEGATIVE); NITRITE URINE NEGATIVE (NEGATIVE); OCCULT BLOOD URINE TRACE (NEGATIVE); PROTEIN URINE NEGATIVE (NEGATIVE); SPECIFIC GRAVITY URINE 1.007 (1.005-1.030)
[2021-07-29 08:00] VITALS: BP 130/69
[2021-07-29] MEDS: QUETIAPINE FUMARATE 25MG TABLET PO SCH ×2 (09:08→22:28)
[2021-07-29] MEDS: LAMOTRIGINE 25MG TABLET PO SCH (09:08)
[2021-07-29 12:00] VITALS: BP 111/69
[2021-07-29] MEDS: DEXT 5%/LACTATED RINGERS 1,000 ML IV SCH ×2 (13:00→18:25)
[2021-07-29] MEDS: RISPERIDONE 0.5MG TABLET PO SCH (13:08)
[2021-07-29 16:00] VITALS: BP 105/72
[2021-07-29] MEDS ORDERED: OLANZAPINE 10 MG/VIAL IM NR (16:00)
[2021-07-29 20:00] VITALS: BP 117/63
[2021-07-30 00:01] VITALS: BP 119/69
[2021-07-30 04:00] VITALS: BP 112/68
[2021-07-30 08:57] VITALS: BP 136/76
[2021-07-30] MEDS: QUETIAPINE FUMARATE 25MG TABLET PO SCH (09:33)
[2021-07-30] MEDS: LAMOTRIGINE 25MG TABLET PO SCH (09:33)
[2021-07-30] MEDS: RISPERIDONE 0.5MG TABLET PO SCH (09:33)
== END 2021-07-30 10:08 | DRG 52 ==
LOC: ER 17:50 → EDBEDREQ 19:08 → MICUSO 21:04 → EDBEDREQTM 21:18 → EDBEDREQ 21:18 → 6WST 07-26 04:06
PROVIDERS: ADMIT Family Medicine Adult Medicine; ATTEND Family Medicine Adult Medicine
DX: G93.40 Encephalopathy, unspecified (principal); R62.7 Adult failure to thrive; G40.909 Epilepsy, unspecified, not intractable, without status epilepticus; E78.00 Pure hypercholesterolemia, unspecified; F20.9 Schizophrenia, unspecified; Z20.822 Contact with and (suspected) exposure to COVID-19; N18.9 Chronic kidney disease, unspecified; I12.9 Hypertensive chronic kidney disease with stage 1 through stage 4 chronic kidney disease, or unspecified chronic kidney disease; Z86.73 Personal history of transient ischemic attack (TIA), and cerebral infarction without residual deficits; Z87.440 Personal history of urinary (tract) infections; Z79.899 Other long term (current) drug therapy; Z68.1 Body mass index [BMI] 19.9 or less, adult
CPT/HCPCS: 36415; 71045; 73502; 73552; 74018; 80048; 80053; 80061; 80165; 81003; 82550; 83735; 83880; 84443; 84484; 85025; 87426; 93005; 99285; J0696; J2060; J3490; J7030; J7121